=== PATIENT | female | born 1990 | race African-American/Black ===

== ENCOUNTER 2019-03-27 23:00 | Emergency (ER) | payer SELFPAY ==
[~2019-03-27] VITALS: Ht 162.6 cm; Wt 49.9 kg
[2019-03-27] MEDS ORDERED: NKM (23:08)
[2019-03-27 23:18] VITALS: BP 133/93
--- NOTE | 2019-03-27 23:18 | NUR ---
ED Nurse Note: Walk-in patient with complaints of maggots in various bodily spaces. ERMD at bedside.
--- NOTE | 2019-03-27 23:49 | NUR ---
ED Nurse Note: Patient cleared for discharge, with no s/s of acute distress. Patient ID band removed. Patient verbalized understanding of discharge instructions and departed with all belongings.
[2019-03-27] MEDS ORDERED: CLOTRIMAZOLE15 GM TOPIC (23:58)
[2019-03-27] MEDS ORDERED: PERMETHRIN60 GM TOPIC (23:58)
[2019-03-27] MEDS ORDERED: CEPHALEXIN500 MG ORAL (23:58)
[2019-03-28] VITALS: BP 133/93
--- NOTE | 2019-03-28 06:13 | Emergency Room Report ---
History of Present Illness General Chief Complaint: General Complaint Source: Patient Present Illness HPI 28-year-old female presents ED for evaluation. Patient states that she has "maggots and worms" coming out of her ears, nose, skin for the last week. Patient states very itchy. Patient states she is taking video showing these worms coming out of her skin. Denies pain. 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 Denies fevers or chills. Denies recent travel. No other aggravating relieving factors. Denies any other associated symptoms Allergies: Coded Allergies: No Known Allergies (Unverified , 03/27/19) Patient History Past Medical History: psych hx Past Surgical History: none Pertinent Family History: none Social History: Denies: smoking, alcohol use, drug use Last Menstrual Period: 03/15/19 Now: No Immunizations: UTD Reviewed Nursing Documentation: PMH: Agreed; PSxH: Agreed Nursing Documentation-PMH Past Medical History: No History, Except For History Of Psychiatric Problem: Yes - ANXIETY, DEPRESSION Review of Systems All Other Systems: negative except mentioned in HPI Physical Exam Vital Signs Date Time Temp Pulse Resp B/P (MAP) Pulse Ox O2 Delivery O2 Flow Rate FiO2 03/27/19 23:03 98.4 97 15 133/93 (106) 100 Room Air Sp02 EP Interpretation: reviewed, normal General Appearance: no apparent distress, alert, GCS 15, non-toxic, thin Head: normocephalic Eyes: bilateral eye normal inspection, bilateral eye PERRL ENT: normal ENT inspection Neck: normal inspection Respiratory: chest non-tender, lungs clear, normal breath sounds, speaking full sentences Cardiovascular #1: regular rate, rhythm, no edema Gastrointestinal: normal inspection Rectal: deferred Genitourinary: no CVA tenderness Musculoskeletal: normal inspection Neurologic: alert, oriented x3, responsive, motor strength/tone normal, sensory intact, speech normal Psychiatric: anxious Skin: other - linear excoriations to skin diffusely. nonerythematous base. Medical Decision Making Diagnostic Impression: Primary Impression: Rash ER Course Hospital Course 28 year old female presents ED with rash Differential diagnoses include: Cellulitis, dermatitis, insect bite, abscess Clinical course Patient placed on stretcher. After initial history, physical exam reveals a young female in no acute distress. On exam there appears to be linear excoriations on the skin diffusely. Concerning for scabies Patient states there are worms coming out of her earlobe. When patient shows this to me this appears such as a sebaceous cyst. Also appears to be sebaceous cyst on her nose where she is documenting worms. Patient shows me a video on her phone she states are the worms in parasites coming out of her. As I reviewed these videos I see no evidence of such. However I do see evidence of sebaceous cysts and mucus from the nose. Patient's speech is pressured and very rapid during evaluation. I suspect anxiety and/or substance abuse could be contributing to her symptoms. I was able to provide patient with reassurance regarding her symptoms. However we will prescribe permethrin cream and Lotrimin cream. I do recommend close follow -up with dermatology. I will provide referrals Diagnosis - rash stable and discharged to home with prescription for permethin, keflex, clotrimazole. Instructed to followup with PMD. Instructed return to ED if symptoms recur or worsen Last Vital Signs Date Time Temp Pulse Resp B/P (MAP) Pulse Ox O2 Delivery O2 Flow Rate FiO2 03/28/19 00:00 98.4 95 15 133/93 100 Room Air Status: improved Disposition: HOME, SELF-CARE Condition: Stable Scripts Clotrimazole* (LOTRIMIN*) 15 Gm Cream..g. 1 APPLIC TOPIC TWICE A DAY, #15 GM Prov: Guicho Vu MD 03/27/19 Cephalexin* (KEFLEX*) 500 Mg Capsule 500 MG ORAL EVERY 6 HOURS for 7 Days, CAP Prov: Guicho Vu MD 03/27/19 Permethrin* (ELIMITE*) 60 Gm Cream..g. 1 APPLIC TOPIC ONCE, #1 TUBE 0 Refills Apply cream from head to toe; leave on for 8-14 hours before washing off with water Prov: Guicho Vu MD 03/27/19 Referrals: NOT CHOSEN IPA/,REFERRING (PCP) [place] [facility] Patient Instructions: Contact Precautions, [id number] Guicho Vu MD Mar 28, 2019 06:13
== END 2019-03-28 | disposition home or self-care (01) ==
LOC: EMR 23:27
DX: R21 Rash and other nonspecific skin eruption (principal); F41.9 Anxiety disorder, unspecified; F32.9 Major depressive disorder, single episode, unspecified; L72.3 Sebaceous cyst
CPT/HCPCS: 99282

== ENCOUNTER 2019-06-04 20:43 | Emergency (ER) | payer SELFPAY ==
[~2019-06-04] VITALS: Ht 162.6 cm; Wt 54.4 kg
[~2019-06-04 20:43] MED LIST: CEPHALEXIN500 MG ORAL; CLOTRIMAZOLE15 GM TOPIC; NKM; PERMETHRIN60 GM TOPIC
[2019-06-04 21:25] VITALS: BP 119/86
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
[2019-06-04] MEDS ORDERED: HYDROcodone/Acetamin 5/325 tab ORAL ONE (21:30)
[2019-06-04 21:49] LABS: APPEARANCE,URINE CLEAR; BILIRUBIN, URINE NEGATIVE (NEGATIVE); COLOR,URINE YELLOW; GLUCOSE, URINE (UA) NEGATIVE (NEGATIVE); KETONES,URINE NEGATIVE (NEGATIVE); LEUKOCYTE ESTERASE ,URINE NEGATIVE (NEGATIVE); NITRITE,URINE NEGATIVE (NEGATIVE); PH,URINE 8 (4.5-8.0); PROTEIN,URINE NEGATIVE (NEGATIVE); UROBILINOGEN,URINE 4 MG/DL (0.0-1.0)
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
[2019-06-04] MEDS ORDERED: HYDROCODON-ACE1 EA15 ORAL (23:03)
[2019-06-04] MEDS ORDERED: IBUPROFEN600 MG ORAL (23:03)
[2019-06-04 23:07] VITALS: BP 119/86
== END 2019-06-04 23:07 | disposition home or self-care (01) ==
LOC: EMR 21:13
DX: S22.42XA Multiple fractures of ribs, left side, initial encounter for closed fracture (principal); S42.022A Displaced fracture of shaft of left clavicle, initial encounter for closed fracture; S30.811A Abrasion of abdominal wall, initial encounter; F14.10 Cocaine abuse, uncomplicated; F17.200 Nicotine dependence, unspecified, uncomplicated; V09.9XXA Pedestrian injured in unspecified transport accident, initial encounter; Y93.9 Activity, unspecified; Y92.524 Gas station as the place of occurrence of the external cause
CPT/HCPCS: 71250; 74176; 80307; 81003; 81025; 99284

== ENCOUNTER 2020-03-06 18:57 | Emergency (ER) | payer SELFPAY ==
[~2020-03-06] VITALS: Ht 162.6 cm; Wt 45.4 kg
[~2020-03-06 18:57] MED LIST changes: +HYDROCODON-ACE1 EA15 ORAL; +IBUPROFEN600 MG ORAL
--- NOTE | 2020-03-06 19:10 | NUR ---
ED Nurse Note: Walk-in patient with complaints of nail and skin disruption. Patient admits to cocaine and marijuana use, weekly. Patient explains that nails have been falling off and lesions have been forming all over body that crust over.
[2020-03-06 19:21] VITALS: BP 142/92
[2020-03-06] MEDS ORDERED: Lidocaine 1% MPF 10mg/ml 5ml INJ ONE (19:45)
[2020-03-06] MEDS ORDERED: Azithromycin 250mg tab ORAL ONE (19:45)
[2020-03-06 20:34] LABS: APPEARANCE,URINE SLIGHTLY CLOUDY; BILIRUBIN, URINE NEGATIVE (NEGATIVE); GLUCOSE, URINE (UA) NEGATIVE (NEGATIVE); KETONES,URINE 1+ (NEGATIVE); LEUKOCYTE ESTERASE ,URINE 2+ (NEGATIVE); NITRITE,URINE NEGATIVE (NEGATIVE); PH,URINE 5 (4.5-8.0); PROTEIN,URINE 1+ (NEGATIVE); UROBILINOGEN,URINE 4 MG/DL (0.0-1.0)
[2020-03-06 20:36] LABS: COLOR,URINE YELLOW
--- NOTE | 2020-03-06 20:58 | Emergency Room Report ---
History of Present Illness General Chief Complaint: General Complaint Source: Patient Present Illness HPI 29-year-old female with no no signal past medical history here complaining of few days of without protection. Also complains of dysuria and urinary frequency. Denies any hematuria, abdominal pain, nausea vomiting fever and chills. Also complains of several months of feeling of needles in both hands and feet. Reports that she often snorts cocaine and smokes tobacco. Also the nails appear to look like that she is biting on them or inducing vomiting as patient appears to be very cachetic. Has not taken medication for symptom relief. Denies , denies take. 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 Patient History Past Medical History: see triage record Past Surgical History: unable to obtain Pertinent Family History: unable to obtain Social History: Reports: drug use - Cocaine Last Menstrual Period: unk Now: No : 3 Para: 3 Reviewed Nursing Documentation: PMH: Agreed; PSxH: Agreed Nursing Documentation-PMH Past Medical History: No Stated History Review of Systems All Other Systems: negative except mentioned in HPI Physical Exam Vital Signs Date Time Temp Pulse Resp B/P (MAP) Pulse Ox O2 Delivery O2 Flow Rate FiO2 03/06/20 19:00 98.2 98 18 142/92 (109) 99 Room Air Sp02 EP Interpretation: reviewed, normal General Appearance: no apparent distress, alert, GCS 15, non-toxic Head: normocephalic, atraumatic ENT: hearing grossly normal, normal pharynx, no angioedema, normal voice Neck: full range of motion, supple/symm/no masses Respiratory: chest non-tender, lungs clear, normal breath sounds, speaking full sentences Cardiovascular #1: regular rate, rhythm, no edema Gastrointestinal: non tender, soft Rectal: deferred Genitourinary: no CVA tenderness Musculoskeletal: back normal, normal range of motion, gait/station normal, non-tender Neurologic: alert, motor strength/tone normal, oriented x3, sensory intact, responsive, speech normal Psychiatric: anxious Skin: other - Peeling of nails bilateral hands without infection or bleeding Lymphatic: no adenopathy Medical Decision Making PA Attestation ALL Diagnosis and treatment plan reviewed and discussed with my supervising physician Dr. Tadeo Diagnostic Impression: Primary Impression: Vaginal discharge Additional Impressions: UTI (urinary tract infection) Peeling of nails ER Course 29-year-old female with no no signal past medical history here complaining of few days of without protection. Also complains of dysuria and urinary frequency. Denies any hematuria, abdominal pain, nausea vomiting fever and chills. Also complains of several months of feeling of needles in both hands and feet. Reports that she often snorts cocaine and smokes tobacco. Also the nails appear to look like that she is biting on them or inducing vomiting as patient appears to be very cachetic. Has not taken medication for symptom relief. Denies , denies take. Ddx considered but are not limited to: vaginitis, yeast infection, BV, chlamydia, Gohnorrea, syphylis, HIV, herpes 1 or 2 Vital signs: are WNL, pt. is afebrile H&PE are most consistent with : UTI, vaginal discharge mostly secondary to chlamydia or gonorrhea, peeling of nails anemia or vitamin deficiency ORDERS: UA, urince cx, urine , Keflex ED INTERVENTIONS: Rocephin IM, azithromycin p.o. DISCHARGE: At this time pt. is stable for d/c to home. Will provide printed patient care instructions, and any necessary prescriptions. Care plan and follow up instructions have been discussed with the patient prior to discharge. Advised patient to follow-up can be secondary to anemia, needing anemia panel in terms of microcytic macrocytic versus normocytic, and checking for vitamin D, vitamin B, and further evaluation. Last Vital Signs Date Time Temp Pulse Resp B/P (MAP) Pulse Ox O2 Delivery O2 Flow Rate FiO2 03/06/20 19:21 98.2 87 18 142/92 99 Room Air Disposition: HOME, SELF-CARE Condition: Stable Scripts Cephalexin* (KEFLEX*) 500 Mg Capsule 500 MG ORAL EVERY 12 HOURS for 7 Days, #14 CAP 0 Refills Prov: Ty Ramsey 03/06/20 Patient Instructions: Urinary Tract Infection, Vaginitis Additional Instructions: Take medication as directed, follow primary care provider for blood work, especially vitamins and for anemia they could be contributing to your nail peeling. If worsening symptom return to the emergency room. Ty Ramsey Mar 06, 2020 20:58
[2020-03-06] MEDS ORDERED: CEPHALEXIN500 MG ORAL (20:59)
--- NOTE | 2020-03-06 20:59 | NUR ---
ED Nurse Note: Called to follow up on second part of urine lab, was told lab is on break for 15 minutes. will continue to follow up.
[2020-03-06 21:07] VITALS: BP 142/92
--- NOTE | 2020-03-06 21:07 | NUR ---
ER DISCHARGE NOTE: Patient is cleared to be discharged per ER Provider. Patient was able to verbalize understanding and given discharge instructions. Patient departed with all belongings.
== END 2020-03-06 21:07 | disposition home or self-care (01) ==
LOC: EMR 21:07
DX: N39.0 Urinary tract infection, site not specified (principal); N89.8 Other specified noninflammatory disorders of vagina; L60.9 Nail disorder, unspecified; F14.90 Cocaine use, unspecified, uncomplicated; Z72.0 Tobacco use
CPT/HCPCS: 81003; 81025; 96372; 96374; 99284; J0696

== ENCOUNTER 2020-05-06 05:48 | Emergency (ER) | payer SELFPAY ==
[~2020-05-06] VITALS: Ht 162.6 cm; Wt 43.1 kg
[2020-05-06 06:20] VITALS: BP 125/80
--- NOTE | 2020-05-06 06:20 | NUR ---
ED Nurse Note: pt walked into ED c/o itching on bilateral feet and toenails, also itching nose, and mouth going on for couple months, pt reports she was seen here at [facility] and was given ABX, but symptoms persist. Pt's toenails are thick and yellow, redness on the side nails where pt says she cut her nails.
[2020-05-06] MEDS ORDERED: GRISEOFULVIN500 MG PO (06:56)
[2020-05-06 07:02] VITALS: BP 114/72
--- NOTE | 2020-05-06 07:02 | NUR ---
ER DISCHARGE NOTE: Patient is cleared to be discharged per ERMD, pt is aox4, on room air, with stable vital signs. pt was given dc paperworks, paper prescriptions, and instructions to f/u with clinic listed on dc paperwork for primary care for further toefungal treatment, pt was able to verbalize understanding, pt id band removed without complications. pt is able to ambulate with steady gait. pt took all belongings.
--- NOTE | 2020-05-06 09:52 | Emergency Room Report ---
History of Present Illness General Chief Complaint: General Complaint Source: Patient Present Illness HPI 39-year-old female presents for multiple complaints. States that her toes hurt. For a few months. Dull, 6 out of 10, nonradiating. Denies any fall or injury. Believes there is a fungal infection around her toes. Also states that she fleas believes something is coming out of her nose, ears, eyes. States they feel itchy. Denies pain. Denies sore throat or cough. No other aggravating relieving factors. Denies any other associated symptoms Allergies: Coded Allergies: No Known Allergies (Unverified , 03/27/19) COVID-19 Screening Contact w/high risk pt: No Experienced COVID-19 symptoms?: No COVID-19 Testing performed C[employer]: No Patient History Past Medical History: none Past Surgical History: none Pertinent Family History: none Social History: Denies: smoking, alcohol use, drug use Now: No Immunizations: UTD Reviewed Nursing Documentation: PMH: Agreed; PSxH: Agreed Nursing Documentation-PMH Past Medical History: No Stated History Review of Systems All Other Systems: negative except mentioned in HPI Physical Exam Vital Signs Date Time Temp Pulse Resp B/P (MAP) Pulse Ox O2 Delivery O2 Flow Rate FiO2 05/06/20 06:00 98.1 81 18 129/87 (101) 99 Room Air Sp02 EP Interpretation: reviewed, normal General Appearance: no apparent distress, alert, GCS 15, non-toxic Head: normocephalic, atraumatic Eyes: bilateral eye normal inspection, bilateral eye PERRL ENT: hearing grossly normal, normal pharynx, no angioedema, normal voice Neck: full range of motion, supple/symm/no masses Respiratory: chest non-tender, lungs clear, normal breath sounds, speaking full sentences Cardiovascular #1: regular rate, rhythm, no edema Cardiovascular #2: 2+ carotid (R), 2+ carotid (L), 2+ radial (R), 2+ radial (L), 2+ dorsalis pedis (R), 2+ dorsalis pedis (L) Gastrointestinal: normal bowel sounds, non tender, soft, non-distended, no guarding, no rebound Rectal: deferred Genitourinary: normal inspection, no CVA tenderness Musculoskeletal: back normal, normal range of motion, gait/station normal, non- tender Neurologic: alert, motor strength/tone normal, oriented x3, sensory intact, responsive, speech normal Psychiatric: judgement/insight normal, memory normal, mood/affect normal, no suicidal/homicidal ideation Reflexes: 3+ bicep (R), 3+ bicep (L), 3+ tricep (R), 3+ tricep (L), 3+ knee (R), 3+ knee (L) Skin: other - Fungal infection with fraying of the toenails on both feet bilaterally. Peeling skin between the toes. Peeling skin to the heels Lymphatic: no adenopathy Medical Decision Making Diagnostic Impression: Primary Impression: Toenail fungus ER Course Hospital Course 29-year-old female presents with pain to her toes. Sensation of something coming out of her nose, ears, eyes Differential diagnoses include: Cellulitis, dermatitis, insect bite, abscess Clinical course Patient placed on stretcher. After initial history, physical exam reveals a young female in no acute distress. Peers somewhat anxious. There is toenail infection likely fungal to all the toes. With cracked peeling skin between the toes and to the heels. Close examination of the eyes, ears, nose show no abnormality or foreign body or anything to suggest patient's symptoms. Patient is very anxious in fidgety. I suspect some substance abuse versus psychiatric condition. We will discharge with griseofulvin. I will provide 1 month supply. I explained to the patient she will need to have LFTs checked by PMD in order to continue the medication. I will provide referrals Diagnosis - toenail fungus stable and discharged to home with prescription for Griseofulvin. Instructed to followup with PMD. Instructed return to ED if symptoms recur or worsen Last Vital Signs Date Time Temp Pulse Resp B/P (MAP) Pulse Ox O2 Delivery O2 Flow Rate FiO2 05/06/20 07:02 98.8 76 16 114/72 100 Room Air Status: improved Disposition: HOME, SELF-CARE Condition: Stable Scripts Griseofulvin,Microsize (GRISEOFULVIN) 500 Mg Tablet 500 MG PO DAILY, #30 TAB Prov: Guicho Vu MD 05/06/20 Referrals: NOT CHOSEN IPA/,REFERRING (PCP) [place] [facility] Patient Instructions: Griseofulvin tablets or capsules Guicho Vu MD May 06, 2020 09:52
== END 2020-05-06 07:02 | disposition home or self-care (01) ==
LOC: EMR 06:23
DX: B35.1 Tinea unguium (principal)
CPT/HCPCS: 99282